=== PATIENT | male | born 1970 | race Caucasian/White ===

== ENCOUNTER 2017-07-29 17:36 | Emergency (ER) | payer OTHER ==
[~2017-07-29] VITALS: Ht 190.5 cm; Wt 125.5 kg
[~2017-07-29 17:36] MED LIST: GLUC10007 PO; HYDR12.55 PO; MULT-506 PO; POTA1080 PO
[2017-07-29 17:44] VITALS: TEMP 37.3; Ht 190.5 cm; Wt 125.5 kg
[2017-07-29] MEDS ORDERED: LSN20 PO (17:52)
[2017-07-29] MEDS ORDERED: HYDR25TA5 PO (17:52)
[2017-07-29] MEDS ORDERED: HYDR12.56 PO (17:52)
[2017-07-29] MEDS ORDERED: OXYB1TAB31 PO (17:52)
[2017-07-29] MEDS: XYLOCAINE 1%/SOD BICARB 20 ML VIAL INFIL ONE ×2 (18:06→18:22)
[2017-07-29] MEDS ORDERED: LIDOCAINE/EPINEPHRINE 1% 20 ML VIAL INFIL ONE (18:15)
[2017-07-29] MEDS ORDERED: DIPHTHERIA/TETANUS/PERTUSSIS 0.5 ML SYR/VIAL IM. ONE (18:15)
--- NOTE | 2017-07-29 18:52 | EMERGENCY ROOM VISIT NOTE ---
ED Visit Note First contact with patient: 18:06 CHIEF COMPLAINT: Left leg laceration HISTORY OF PRESENT ILLNESS: This 46-year-old male patient presents to the emergency department ambulatory after cutting the left leg on a tail pipe of a car 15 minutes prior to arrival. The bleeding has not stopped. Denies weakness or numbness of the make. The patient rates the pain as sharp and 5/10. The patient denies any other injuries. The patient is unsure of his tetanus status. REVIEW OF SYSTEMS: A 6 system review of systems was completed with positives and pertinent negatives listed in the HPI. ALLERGIES: Sulfa drugs MEDICATIONS: See EMR PMH: Hypertension SOCIAL HISTORY: The patient lives locally with family. Nonsmoker. PHYSICAL EXAM: Vital Signs: Reviewed Nurse's notes, vital signs stable. GENERAL : This is a 46-year-old male, in no acute distress, well-developed, well- nourished. SKIN: There is a 5 cm long laceration on the anterior aspect of the left lower leg. The edges gape apart with traction. There is no foreign material in the wound and it looks clean. There is minimal bleeding. No deep structures such as tendons, bones, or significant blood vessels are seen in the base of the wound. Normal strength and movement of the left ankle and foot. Capillary refill less than 2 seconds. Normal sensation to light and sharp touch. EMERGENCY DEPARTMENT COURSE: I examined the patient. Verbal consent was obtained to perform the procedure. Using sterile technique the wound was cleansed with Betadine. The area was sterilely draped. 8 ml of 1% buffered lidocaine with epinephrine was used to anesthetize the laceration on the leg. Once the patient was anesthetized, the wound was copiously irrigated under pressure with sterile saline. The wound was explored and was as described above. The laceration was repaired using 8 simple interrupted 4-0 nylon sutures with the wound edges being well approximated. The patient tolerated the procedure well. Hemostasis was achieved. The area was cleaned with sterile saline and dressed with bacitracin ointment and bandage. The patient was given Td immunization. Suture care measures were discussed with the patient. He verbalized understanding of my assessment and treatment plan. The patient was discharged home in good condition. DIAGNOSIS: Left leg laceration Current/Historical Medications Scheduled Glucosamine Sulfate (Glucosamine), 1,000 MG PO BID Hydrochlorothiazide (Hctz), 12.5 MG PO QAM Hydrochlorothiazide (Hydrochlorothiazide), 25 MG PO QAM Lisinopril (Lisinopril), 20 MG PO DAILY Multivitamin (Multivitamin), 1 TAB PO QAM Oxybutynin Chloride (Oxybutynin Chloride ER), 5 MG PO QAM Potassium Citrate (Urocit-K), 10 MEQ PO QAM Allergies Coded Allergies: Sulfa Drugs (Verified Allergy, Unknown, HIVES, 07/29/17) Vital Signs Date Time Temp Pulse Resp B/P (MAP) Pulse Ox O2 Delivery O2 Flow Rate FiO2 07/29/17 17:44 37.3 89 18 156/102 97 Room Air Medications Administered Medications (Trade) Dose Ordered Sig/German Route Start Time Stop Time Status Last Admin Dose Admin Diphtheria/ Pertussis/Tetanus Vacc (Adacel Inj) 0.5 ml ONCE ONCE IM. 07/29/17 18:15 07/29/17 18:16 DC 07/29/17 18:21 0.5 ML Lidocaine/ Epinephrine (Xylocaine/Epine 1% Inj) 20 ml ONE ONCE INFIL 07/29/17 18:15 07/29/17 18:16 DC 07/29/17 18:22 20 ML Departure Information Impression Primary Impression: Laceration of lower extremity Dispostion Home / Self-Care Condition GOOD Referrals Bear Bentley M.D. (PCP) Patient Instructions [facility] Additional Instructions You have received 8 sutures on your leg. These sutures are NOT dissolvable and WILL need to be removed by a health care provider in 14 days. You can return to the Emergency Department or contact your Primary Care Provider to have the sutures removed. Proper wound care is essential for adequate wound healing and infection prevention. You can shower and clean the wound with soap and water. Do not scour over the wound, pat dry with a towel. Do not submerse the wound (i.e. bathe or dish wash) until the sutures have been removed. You can use an antibiotic ointment with a dressing over the wound for the next 3-4 days. After this time you may leave the wound dry and open to the air. If crust develops over the wound you can use a Q-tip to apply a 1:1 peroxide:water solution to clean the wound. Look for signs of infection of the wound including: increased pain, swelling, foul discharge, streaking, or increased temperature. If any of these are noticed you should return to the Emergency Department for further assessment and treatment. As with any laceration you may have received nerve damage to the surrounding tissues. This damage may or may not be permanent. You should keep the area covered with sunscreen for the first 6 months to 1 year when at risk for exposure to help minimize scarring. You can also use scar reducing creams or Vitamin E oil to help minimize scarring. For pain control, you can use the following [id number] medicines (if >12 yo): - Regular strength (325mg/tab) Tylenol (acetaminophen) 2 tabs every 4-6 hours as needed. Do not exceed 12 tablets in a 24 hour period. Avoid taking more than 4 grams (4000 mg) of Tylenol per day. This includes any other sources of acetaminophen you may take on a regular basis. - Regular strength (200 mg/tab) Advil (ibuprofen) 1-2 tabs every 4-6 hours as needed. Do not exceed a dose of 3200 mg per day. Return to the emergency department if your symptoms worsen despite treatment course outlined above. Problem Qualifiers Primary Impression: Laceration of lower extremity Encounter type: initial encounter Laterality: left Qualified Codes: S81.812A - Laceration without foreign body, left lower leg, initial encounter
[2017-07-29 18:56] VITALS: BP 127/78; PULSE 81; O2SAT 94
== END 2017-07-29 18:56 | disposition home or self-care (01) ==
LOC: C.EDB 17:37 → C.EDD 18:56
DX: S81.812A Laceration without foreign body, left lower leg, initial encounter (principal); W45.8XXA Other foreign body or object entering through skin, initial encounter; I10 Essential (primary) hypertension; Z23 Encounter for immunization

== ENCOUNTER 2017-08-12 16:10 | Emergency (ER) | payer OTHER ==
[~2017-08-12] VITALS: Ht 190.5 cm; Wt 93.0 kg
[~2017-08-12 16:10] MED LIST changes: -HYDR12.55 PO; +HYDR12.56 PO; +HYDR25TA5 PO; +LSN20 PO; +OXYB1TAB31 PO
[2017-08-12 16:25] VITALS: TEMP 36.9; Ht 190.5 cm; Wt 93.0 kg
--- NOTE | 2017-08-12 16:47 | EMERGENCY ROOM VISIT NOTE ---
ED Visit Note First contact with patient: 16:34 CHIEF COMPLAINT: Suture removal HPI: This patient returns to the ED today for removal of sutures on his LLE that were placed 14 days ago. There has been no swelling, redness, or drainage from the wound. The patient feels like the laceration is healing well. REVIEW OF SYSTEMS: A complete 6 point review of systems was reviewed with the patient with pertinent positives and negatives as per history of present illness. All else were negative. PMH: Hypertension SOCIAL HISTORY: The patient lives locally with family. He denies drug, alcohol , tobacco use. PHYSICAL EXAM: Vital Signs: Reviewed Nurse's notes. There is a sutured wound on the left lower extremity with no signs of infection. There is no erythema, swelling, or tenderness. [address] EMERGENCY DEPARTMENT COURSE: The sutures were removed without any difficulty and there was no separation of the wound edges. The laceration was covered with bacitracin ointment and a bandage. Discharge instructions reviewed, the patient was discharged home in good condition. I attest that I have personally reviewed the patient's current medication list. Patient was found to have normal blood pressure on screening and does not require follow-up. DIAGNOSIS: LLE Laceration and suture removal Current/Historical Medications Scheduled Glucosamine Sulfate (Glucosamine), 1,000 MG PO BID Hydrochlorothiazide (Hctz), 12.5 MG PO QAM Hydrochlorothiazide (Hydrochlorothiazide), 25 MG PO QAM Lisinopril (Lisinopril), 20 MG PO DAILY Multivitamin (Multivitamin), 1 TAB PO QAM Oxybutynin Chloride (Oxybutynin Chloride ER), 5 MG PO QAM Potassium Citrate (Urocit-K), 10 MEQ PO QAM Allergies Coded Allergies: Sulfa Drugs (Verified Allergy, Unknown, HIVES, 07/29/17) Vital Signs Date Time Temp Pulse Resp B/P (MAP) Pulse Ox O2 Delivery O2 Flow Rate FiO2 08/12/17 16:25 36.9 108 18 138/85 99 Room Air Departure Information Impression Primary Impression: Encounter for removal of sutures Additional Impression: Laceration of left lower leg Dispostion Home / Self-Care Condition GOOD Referrals No Doctor, Assigned (PCP) Patient Instructions ED Laceration Ext Sutr Stap Tape, [facility] Additional Instructions Proper wound care is essential for adequate wound healing and infection prevention. You can shower and clean the wound with soap and water. Do not scour over the wound, pat dry with a towel. Do not submerse the wound (i.e. bathe or dish wash) until the wound has fully healed. You can use an antibiotic ointment with a dressing over the wound for the next 3-4 days. After this time you may leave the wound dry and open to the air. Return to the ED for worsening redness, drainage, pus, abscess, streaking, fever , chills, nausea, vomiting, or other concerning signs/symptoms. Problem Qualifiers Additional Impression: Laceration of left lower leg Encounter type: subsequent encounter Qualified Codes: S81.812D - Laceration without foreign body, left lower leg, subsequent encounter
[2017-08-12 17:01] VITALS: BP 124/84; PULSE 89; O2SAT 99
== END 2017-08-12 17:02 | disposition home or self-care (01) ==
LOC: C.EDB 16:11 → C.EDD 17:02
DX: Z48.02 Encounter for removal of sutures (principal); I10 Essential (primary) hypertension; Z79.899 Other long term (current) drug therapy; Z88.2 Allergy status to sulfonamides